=== PATIENT | male | born 1955 | race Caucasian/White ===

== ENCOUNTER 2018-03-07 06:00 | Observation (INO) | payer OTHER ==
[~2018-03-07] VITALS: Ht 188 cm; Wt 99.8 kg
[~2018-03-07 06:00] MED LIST: ANDROGEL1.25 GM TD; ARMOUR THYROID120 MG PO; LEVOTHYROXINE150 MCG PO; LIOTHYRONINE SO5 MCG; QUESTRAN LIGHT P4 GM PO
--- NOTE | 2018-03-07 09:01 | NUR ---
PT ALERT, ORIENTED AND SEEMS TO BE RELAXED AND PREPARED. GOOD VISIT, HAD PRAYER WITH PT, WILL FOLLOW NEEDED
--- NOTE | 2018-03-07 09:55 | NUR ---
03/07/18 0955 Argelia Friedman 0936-PATIENT ARRIVED TO PACU ON 8L MASK WEANED TO 6L RR EVEN. PATIENT NONAROUSABLE ORAL AIRWAY IN PLACE. DRESSING TO CHEST CDI ICE APPLIED.SR 0938-PATIENT REACTIVE TO VOICE MOVING UPPER EXTREMITIES ORAL AIRWAY REMOVED. OPENS EYES. ORIENTED TO PACU. PATIENT DOZES BACK TO SLEEP. DOES NOT ANSWER QUESTION WHEN ASKED IN PAIN. 0954-PATIENT SLEEPING AROUSES TO VERBAL STIMULI DENIES PAIN OR NAUSEA. WEANED TO RA RR EVEN. DOZES BACK TO SLEEP.
--- NOTE | 2018-03-07 10:32 | NUR ---
PT ARRIVES TO DS RM 4 AWAKE AND ALERT. PT DENIES ANY NAUSEA AND RATES PAIN 4/10 AND STATES, "THAT IS COMFORTABLE." PT ENCOURAGED TO LET RN KNOW IF HE BECOMES PAINFUL AND WOULD LIKE MEDICATED. CALL LIGHT IN REACH. PT PROVIDED ICED WATER AND CRACKERS. PT TAKING SMALL SIPS OF WATER AND STATES, "I FEEL LIKE SOMETHING IS IN MY THROAT." PT PROVIDED PILLOW TO BRACE ABD FOR COUGHING. PT FOLLOW COMMANDS WELL.
--- NOTE | 2018-03-07 11:48 | NUR ---
1130: PT RESTING IN BED WITH EYES CLOSED. PT EASILY AROUSED BY VERBAL STIMULATION. PT CONT TO DENY NAUSEA AND STATES THAT "PAIN IS ABOUT THE SAME, BUT HURTS MORE WITH MOVEMENT." PT ENCOURAGED TO NOTIFY RN WHEN MORE PAINFUL AND EDUCATED ABOUT PAIN, PT AGREES BY NODDING HEAD. CALL LIGHT WITHIN REACH, SCDS IN PLACE.
--- NOTE | 2018-03-07 12:50 | NUR ---
PT CONT TO REST WITH EYES CLOSED. PT DENIES NAUSEA AND STATES PAIN IS "ABOUT THE SAME," BUT DENIES PAIN MEDICATION. PT OFFERED THYROID MEDICATION ORDERED, BUT ALSO DENIES HE "TOOK IT AT MIDNIGHT, SO THAT SHOULD COVER ME FOR TODAY." CALL LIGHT TO PT LEFT SIDE, ENCOURAGED TO USE WHEN HE FEELS THE URGE TO VOID.
--- NOTE | 2018-03-07 14:05 | NUR ---
[id number]: PT UP TO BR WITH RN ASSIST. PT ENCOURAGED TO ROLL TO SIDE AND SIT UP SLOWLY TO AVOID USING DIRECT ABDOMINAL MUSCLES. PT PAINFUL WITH MOVEMENT. PT DENIES DIZZINESS OR NAUSEA WITH POSITION CHANGE. PT AMBULATES WELL. PT ABLE TO VOID 125 MLS YELLOW URINE WITH NO PROBLEMS. PT BACK IN BED AND MEDICATED FOR PAIN, SEE EMAR. SCD'S IN PLACE AND CALL LIGHT IN REACH. PT PROVIDED ICED WATER, JELLO AND PUDDING IN ANTICIPATION OF ORAL PAIN MEDICATION.
--- NOTE | 2018-03-07 14:18 | NUR ---
PT TOELRATES PO WELL WITH NO C/O NAUSEA. PT PROVIDED MORE ICED WATER AND SOUP WITH CRACKERS PER REQUEST. ORAL PAIN MEDICATION GIVEN, SEE EMAR.
--- NOTE | 2018-03-07 14:50 | NUR ---
PT SISTER CALLED WITH UPDATE AND THAT HE IS GOING TO SPEND THE NIGHT ON OBSERVATION ON MED SURG PER REQUEST.
--- NOTE | 2018-03-07 15:49 | NUR ---
NEW ADMIT TO FLOOW. REPORT RECEIVED AT BEDSIDE. PT AWAKE, ALERT AND ORIENTED X3. PT REPORTS PAIN LEVEL IN ABD IS 2/10. LARGE DRESSING TO MID ABG, GUAZ HAS SAROSANG DRAINAGE NOTED; MARKED WITH PEN. PT RECENTLY VOIDED PER REPORT. BT HYPOACTIVE ALL QUADRANTS. ORIENTED PT TO ROOM AND CALL LIGHT.
--- NOTE | 2018-03-07 15:53 | NUR ---
PT TRANSFERRED TO RM 113 ON MEDSURG FROM DS RM 4 VIA STRETCHER. VERBAL REPORT GIVEN TO PELON AREVALO.
--- NOTE | 2018-03-07 19:11 | NUR ---
PER DAY SURGERY, PT VOIDED 250 JUST PRIOR TO ADMITTING TO MED-SURG.
--- NOTE | 2018-03-07 19:55 | NUR ---
PATIENT MEDICATED WITH 8MG IV ZOFRAN FOR NAUSEA.
--- NOTE | 2018-03-07 20:29 | NUR ---
ROUNDED CHARGE. MARI BIRD IN THE ROOM. REINFORCED DRESSING. PATIENT DENIES ANY COMMNETS, QUESTIONS, OR CONCERNS. NO NEEDS NOTED. CALL LIGHT IN REACH.
--- NOTE | 2018-03-07 21:50 | NUR ---
PATIENT MEDICATED WITH 2 PO NORCO FOR 8/10 ABD PAIN WHEN HE MOVES, ONLY 3/10 WHEN HE DOESN'T MOVE. PATIENT IS GOING TO TRY AND GET SOME SLEEP NOW. PATIENT HAS BEEN ABLE TO STAND AT THE BED SIDE AND VOID.
--- NOTE | 2018-03-08 00:05 | NUR ---
PATIENT RESTING QUIETLY, EYES CLOSED, RESPIRATIONS REGULAR AND EVEN, SATS 96% ON ROOM AIR AND HEART RATE 66 ON PULSE OX. CALL LIGHT IN REACH AND PATIENT HAVING NO S/S OF DISTRESS.
--- NOTE | 2018-03-08 01:26 | NUR ---
PATIENT RESTING QUIETLY, EYES CLOSED, RESPIRATIONS ARE REGULAR AND EVEN, O2 SATS 94% ON ROOM AIR AND HEART RATE 62 ON PULSE OX. CALL LIGHT IN REACH.
--- NOTE | 2018-03-08 03:25 | NUR ---
PATIENT JUST PULLED UP IN BED. DRESSING HAS NOT BLED ANYMORE SINCE IS WAS REINFORCED. PATIENT IS HAVING 8/10 ABD PAIN WITH MOVEMENT AND WAS GIVEN TO PO NORCO. VS HAVE BEEN STABLE AND PATIENT SAID THE LAST COUPLE NORCO HELPED A LOT AND HE WAS ABLE TO GET SOME SLEEP. PATIENT IS VOIDING WELL. CALL LIGHT IN REACH AND NO OTHER NEEDS AT THIS TIME.
--- NOTE | 2018-03-08 04:30 | NUR ---
PATIENT RESTING QUIETLY, PAIN IS DOWN TO 3/4 WHEN HE IS NOT MOVING AROUND, VS STABLE ON CONTINUOUS PULSE OX.
--- NOTE | 2018-03-08 06:28 | OR ---
[facility] [address], [place] [address] Signed DATE OF OPERATION: 03/07/2018 SURGEON: Coleman Schmitz MD PREOPERATIVE DIAGNOSIS: Incarcerated epigastric ventral incisional hernias (x4). POSTOPERATIVE DIAGNOSIS: Incarcerated epigastric ventral incisional hernias (x4). PROCEDURE PERFORMED: Open ventral incisional herniorrhaphy with intraabdominal Ventrio mesh (13.8 x 17.8 cm). ESTIMATED BLOOD LOSS: None. 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 Around eight years ago, he underwent an open fundoplication for his hiatal hernia through a standard epigastric and periumbilical midline incision. He has noticed painful swelling in several areas. The one above his umbilicus and just below the xiphoid process seem to bother him the most. We had sent him for an ultrasound of his abdominal wall. Sure enough he has 4 small incarcerated ventral incisional hernias in the epigastric region. The first one is just below the superior aspect of his xiphoid process, and then 3 cm below that is another hernia, then in another 3 cm is the 3rd hernia, and then just above the umbilicus is the 4th hernia. In the office, I had given Beni Renata brochure on hernias. We looked that very carefully. I explained to him his current situation with four separate hernias. In general, we would like to place one piece of mesh to cover the entire area. Occasionally we will use a small piece of mesh for one or two hernias if they are far enough apart and the tissue in between is thick and strong. I also explained to Beni the expected intraop and postop course. He is aware that these are often more involved than anticipated, and in that case we would keep him in the hospital a day or two until he was feeling better. [place] he is a bachelor and so we have to keep that in mind as well. Beni is very aware there is risk to surgery including, but not limited to bleeding, infection, scarring, change in contour of the skin, damage to bowel, infection of mesh requiring removal of recurrent hernias, and chronic pain. He had expressed understanding and wished to proceed. PROCEDURE NOTE: Electronically Signed By: COLEMAN SCHMITZ MD 03/08/18 0628 PATIENT NAME: BENI BECERRA OPERATIVE REPORT DATE OF : 55 REPORT #: [id number] PHYSICIAN: COLEMAN SCHMITZ MD PCP: NO PRIMARY CARE PHYSICIAN REPORT IS CONFIDENTIAL AND NOT TO BE RELEASED WITHOUT AUTHORIZATION [facility] [address], [place] [address] Signed I met with Beni in our preop area. We once again reviewed the fact that he has four incisional hernias. We can feel the one just above the umbilicus, but really the other three were much more difficult to ascertain on physical exam. We went ahead and marked the upper abdomen appropriately. After this, Beni was taken into our operating room and placed in the supine position under general endotracheal tube anesthesia. He was given preoperative antibiotics along with subcutaneous heparin. SCDs were utilized. We did place a Uriarte catheter without difficulty with return of very light yellow urine. After this, his abdomen was prepped and draped in the usual sterile fashion. We utilized his previous midline incision. We opened that sharply with our 15 blade knife. We carried this down through the subcutaneous adipose tissue bluntly and with the cautery. We found all four hernias. The two most inferior hernias only had about 6 or 7 mm of scar tissue between them. Each one contained some adipose tissue. The middle hernia contained the transverse colon. We had area where the cautery had touched the colon, so we went ahead and dunked that under with interrupted 3-0 Vicryl sutures. After that, we decided to go ahead. We connected all four hernias so that the entire fascial defect was 8 cm in length. We then took 20 or 30 minutes to divide all the adhesions in the upper abdomen and dropped the transverse colon and omentum down and away from his abdominal wall. After this, we measured out the length of the hernia and it was 8 cm total in length. Consequently, we chose our 13.8 x 17.8 cm Ventrio mesh in the shape of an oval, we placed that inside the abdominal cavity. It was nice and flat. We could see that quite nicely. We then carefully closed the midline fascia with interrupted [id number] and simple #1 and #2 Prolene sutures. Several passes of the suture went through the top layer of the midportion of the mesh to help keep it in place. We then infiltrated the abdominal wall with local anesthetic and we irrigated the wound until clear and we brought the adipose tissue together over the midline with interrupted 3-0 Monocryl sutures. The dermis was reapproximated with interrupted 3-0 Monocryl sutures about every 1 cm. The skin was then held together with krystle. Dry gauze and tape were then applied. Beni was then awakened from his anesthesia, extubated in the OR, and taken to recovery room in stable condition. We did remove our Uriarte catheter in the operating room without difficulty. Coleman Schmitz MD ALB/MODL /[id number] Electronically Signed By: COLEMAN SCHMITZ MD 03/08/18 0628 PATIENT NAME: BENI BECERRA OPERATIVE REPORT DATE OF : 55 REPORT #: [id number] PHYSICIAN: COLEMAN SCHMITZ MD PCP: NO PRIMARY CARE PHYSICIAN REPORT IS CONFIDENTIAL AND NOT TO BE RELEASED WITHOUT AUTHORIZATION [address] [address] Signed cc: DO Coleman Strickland MD Copies: JESSICA FREEDMAN ANDREW L MD ~ Electronically Signed By: COLEMAN SCHMITZ MD 03/08/18 0628 PATIENT NAME: BENI BECERRA OPERATIVE REPORT DATE OF : 55 REPORT #: [id number] PHYSICIAN: COLEMAN SCHMITZ MD PCP: NO PRIMARY CARE PHYSICIAN REPORT IS CONFIDENTIAL AND NOT TO BE RELEASED WITHOUT AUTHORIZATION
--- NOTE | 2018-03-08 06:30 | NUR ---
TALKED WITH DR. SCHMITZ ALREADY THIS AM AND HE IS HERE SEEING THE PATIENT. DOC INFORMED OF REINFORCING THE DRESSING. WILL BE WRITING NEW ORDERS FOR DDAY SHIFT.
--- NOTE | 2018-03-08 07:02 | NUR ---
Pt resting supine in bed, alert and oriented asks "How can I order some breakfast around here the doctor was just in and said I could have some solid food". Pt given menue and phone. bedside report received from PELON Johansen. Pt appears to be in no acute distress. incision well approximated, krystle intact. Call light and h2o in reach. Pt denies having any furhter concerns or requests.
--- NOTE | 2018-03-08 07:55 | NUR ---
ANSWERED CALL LIGHT. PT'S DOOR AND CURTAIN FULLY SHUT PER PT'S REQUEST. PT SITTING UP EATING BREAKFAST IN BED AND STATES HE NEEDS TO USE URINAL. URINAL CALL LIGHT AND H20 WITHIN REACH. NO FURTHER CONCERNS OR REQUESTS VOICED AND PT APPEARS TO BE IN NO ACUTE DISTRESS.
--- NOTE | 2018-03-08 08:58 | NUR ---
pt resting supine in bed, pt reports elevated abdominal pain, worse with movement. assessment completed and PRN norco administered along with am medication. Bt's active x4, pt states he was able to tolerate all of his regular diet with no nausea. call light and fresh ice water in reach. pt denies further needs or concerns.
[2018-03-08] MEDS ORDERED: CHOLESTYRAMINE378 GM PO (10:22)
[2018-03-08] MEDS ORDERED: ARMOUR THYROID180 MG PO (10:23)
[2018-03-08] MEDS ORDERED: TESTOSTERONE75 G1 TOP (10:25)
--- NOTE | 2018-03-08 10:49 | NUR ---
ANSWERED CALL LIGHT. PT REPORTS SOME BLEEDING COMMING FROM ABD INCISION SITE. INCISION REMAINS WELL APPROXIMATED WITH EMELY INTACT. SMALL AMOUNT OF SEROSANGUINOUS DRAINAGE NOTED TO ABD, NEW GUAZE DSG AND TAPE APPLIED. CALL LIGHT AND H20 IN REACH. PT DENIES FURTHER NEEDS.
--- NOTE | 2018-03-08 11:32 | NUR ---
PT RESTING SUPINE IN BED WATCHING TV. PT DENIES NAUSEA OR PAIN. CALL LIGHT AND H20 IN REACH.
--- NOTE | 2018-03-08 12:56 | NUR ---
PT SITTING IN BED, FINISHING LUNCH. HE BELIEVES HE IS TO BE DC'D TODAY, AND HIS SISTER WILL TAKE HIM HOME. PLANNING ON SLEEPING IN HIS RECLINER AT HOME FOR THE FIRST FEW DAYS, VISIT WITH DR SCHMITZ NEXT MON. EXTENDED A BLESSING, WILL FOLLOW NEEDED
--- NOTE | 2018-03-08 13:55 | NUR ---
MED REC COMPLETE
--- NOTE | 2018-03-08 14:22 | NUR ---
PT REPORTS NAUSEA "IT CAME ON JUST IN THE PAST TEN MINUTES IT FEELS BETTER NOW BUT I STILL FEEL IT A LITTLE". PRN IV ZOFRAN ADMINISTERED PER PT REQUEST. ASSESSMENT COMPLETED. DRESSING TO ABDOMEN CHANGED AND WAS SATURATED WITH A SMALL AMOUNT OF SEROSANGUINOUS DRAINAGE. BT'S ACTIVE X4, INCISION WELL APPROXIMATED. CALL LIGHT AND H20 IN REACH. PT ASKS "WHEN DO YOU THINK I WILL BE DISCHARGED, I'D LIKE TO GET GOING SOON". PT ASSURED HE WOULD BE NOTIFIED SOON ESTIMATED TIME FRAME FOR DISCHARGE CAN BE GIVEN. NO FURHTER CONCERNS OR REQUESTS VOICED.
--- NOTE | 2018-03-08 15:50 | NUR ---
PHONE CALL TO MD, VERIFIED CONTINUED HOME MEDICATIONS FOR DISCHARGE. UPDATED MD THAT PT WILL BE DISCHARGING PER ORDERS.
[2018-03-08] MEDS ORDERED: NORCO 10-325 T1 EACH PO (16:03)
--- NOTE | 2018-03-08 16:06 | NUR ---
PATIENT IN BED RESTING AND WATCHING TV. WATER REFRESHED. CALL LIGHT IN REACH. NO FURTHER NEEDS AT THIS TIME.
--- NOTE | 2018-03-08 16:32 | NUR ---
PT EDUCATION PROVIDED TO PT AND PT VERBALIZED UNDERSTANDING OF EDUCATION. PT AGREES NOT TO DRIVE WITHIN 24 HOURS OF TAKING NARCOTIC PAIN PILLS. PHARMACY WAS IN TO GO OVER PT'S MEDICATIONS AND PT GIVEN PHYSICAL ORDER TO TAKE TO PHARMACY OF HIS CHOICE. ALL QUESTIONS ANSWERED AND PT AGREES TO NOTIFY MD IF SYMPTOMS PERSIST OR WORSEN. IV DC'D AND DRILL PRESS HAND TO COME ASSIST PATIENT VIA WC TO HIS SISTERS CAR THAT IS WAITING FOR HIM AT FRONT ENTRANCE.
== END 2018-03-08 16:35 | disposition home or self-care (01) ==
LOC: DS 06:00 → MS 09:54
PROVIDERS: ADMIT Colon & Rectal Surgery
PROC: 0WUF0JZ Supplement Abdominal Wall with Synthetic Substitute, Open Approach (ICD-10-PCS; principal; 2018-03-07 08:30)
DX: K43.0 Incisional hernia with obstruction, without gangrene (principal); E03.9 Hypothyroidism, unspecified; G47.33 Obstructive sleep apnea (adult) (pediatric); E78.5 Hyperlipidemia, unspecified; N40.0 Benign prostatic hyperplasia without lower urinary tract symptoms; Z79.899 Other long term (current) drug therapy
CPT/HCPCS: 00750; 36415; 85025; 96361; 96372; 96374; 96375; 96376; C1781; G0378; J0330; J0690; J1100; J1170; J1644; J1885; J2250; J2405; J2704; J3010; J7120